=== PATIENT | male | born 1995 | race Caucasian/White ===

== ENCOUNTER 2019-11-23 09:49 | Emergency (ER) | payer OTHER ==
[~2019-11-23] VITALS: Ht 180.3 cm; Wt 58.5 kg
--- NOTE | 2019-11-23 09:55 | NUR ---
pt not in lobby x1 @ [phone]
[2019-11-23 09:56] VITALS: BP 133/89
--- NOTE | 2019-11-23 10:57 | NUR ---
Patient/Caregiver given discharge instructions and they have confirmed that they understand the instructions. Patient ambulatory with steady gait. pt left with all personal belongings.
== END 2019-11-23 10:58 | disposition home or self-care (01) ==
LOC: ED 10:51
DX: K02.9 Dental caries, unspecified (principal); F17.200 Nicotine dependence, unspecified, uncomplicated; F12.10 Cannabis abuse, uncomplicated
CPT/HCPCS: 99283